=== PATIENT | male | born 1945 | race Caucasian/White ===

== ENCOUNTER 2025-01-11 11:08 | Outpatient (AMB) | payer BC, SELFPAY ==
--- NOTE | 2025-01-11 11:55 | MHC.OFFVIS ---
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 His initial labs in November of 2024 revealed B12 level 596, folate more than 20, TSH was 1.16, and p-tau level was 1.13, abnormally high suggestive of cerebral amyloid or Alzheimer. His initial MOCA was 17. He said that he was doing ok with no complaints. [facility] Medical History (Updated 01/11/25 @ 12:02 by Lauren Causey MD) Retinal vein occlusion of left eye Carotid stenosis Glaucoma HLD (hyperlipidemia) Hypertension Alzheimer disease Review of Systems Const Details: Complain of forgetfulness Physical Exam Neuro Other: Mental Status: Alert and awake with normal spontaneity of speech fluency and comprehension. Cranial Nerves: CN II: Visual ryan full to confrontation, visual acuity intact. CN III, IV, : Pupils equal, round, reactive to light and accommodation. Extraocular movements are normal. CN V: Facial sensation is normal. CN VII: Facial movements symmetrical. CN VIII: Hearing intact to bedside conversation is normal. CN IX, X: Palate elevates symmetrically. CN XI: Shoulder shrug and head turn symmetrical. CN XII: Tongue midline without atrophy or fasciculations. Motor: Bulk and tone normal in all extremities. No significant muscle weakness in arms and legs. No drift. Reflexes: Deep tendon reflexes 2+ and symmetric. Plantar response down-going bilaterally. Coordination: Mjlbxq-cy-jotu and zldh-iv-annm testing normal. No dysmetria. Gait and Station: No obvious gait abnormality. No ataxia or instability. Sensory: Intact to light touch, pinprick, and vibration. Romberg is negative. Extrapyramidal: Full facial expressions and blinking. No rigidity. Movements are appropriate with no tremor or abnormality. Speech: Normal; no dysarthria or tremor. Assessment & Plan Assessment & Plan (1) Alzheimer dementia: Code(s): G30.9 - Alzheimer's disease, unspecified; F02.80 - Dementia in other diseases classified elsewhere, unspecified severity, without behavioral disturbance, psychotic disturbance, mood disturbance, and anxiety Category: Medical Qualifiers: Alzheimer's disease onset: late onset Dementia severity: moderate Dementia behavioral or psychological symptom: without behavioral, psychotic, or mood disturbance or anxiety Qualified Code(s): G30.1 - Alzheimer's disease with late onset; F02.B0 - Dementia in other diseases classified elsewhere, moderate, without behavioral disturbance, psychotic disturbance, mood disturbance, and anxiety Plan Moderately severe Alzheimer dementia without anxiety, depression, or other behavioral issues. Medications: New donepezil 5 mg PO BEDTIME 30 tabs 1RF Coding Level of Care Code Est Pt Level 4 (49104) Diagnoses Moderate late onset Alzheimer's dementia without behavioral disturbance, psychotic disturbance, mood disturbance, or anxiety G30.1; F02.B0 Alzheimer's disease onset: late onset Dementia severity: moderate Dementia behavioral or psychological symptom: without behavioral, psychotic, or mood disturbance or anxiety
== END 2025-01-11 12:06 | disposition home or self-care (01) ==
LOC: HO.HSM 11:09
PROVIDERS: PCP Internal Medicine; Visit Provider Psychiatry & Neurology Neurology
DX: G30.1 Alzheimer's disease with late onset (principal); F02.B0 Dementia in other diseases classified elsewhere, moderate, without behavioral disturbance, psychotic disturbance, mood disturbance, and anxiety
CPT/HCPCS: 99214

== ENCOUNTER 2025-03-18 12:48 | Outpatient (AMB) | payer BC, SELFPAY ==
--- NOTE | 2025-03-18 13:11 | MHC.OFFVIS ---
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 His initial labs in November of 2024 revealed B12 level 596, folate more than 20, TSH was 1.16, and p-tau level was 1.13, abnormally high suggestive of cerebral amyloid or Alzheimer. His initial MOCA was 17. He is presenting with medication management and adjustment for Alzheimer's disease. He reports adherence to donepezil 10 mg, with noted improvements in his condition by his spouse. An increase in dose to 10 mg is confirmed alongside consideration of initiating memantine at a dosage of 10 mg twice a day. The discussion covered efficacy and the typical observation by family members regarding the effectiveness of these medications. [facility] on [facility] is the chosen pharmacy. [facility] Medical History (Updated 01/11/25 @ 12:02 by Lauren Causey MD) Retinal vein occlusion of left eye Carotid stenosis Glaucoma HLD (hyperlipidemia) Hypertension Alzheimer disease Review of Systems Const Details: - Neurological: Reports taking donepezil, improvements noted by family members. Physical Exam Neuro Other: Mental Status: Alert and oriented to person, place, and time. Normal attention. Normal spontaneous speech, fluency, and comprehension. Cranial Nerves: CN II: Visual ryan full to confrontation, visual acuity intact. CN III, IV, : Pupils equal, round, reactive to light and accommodation. Extraocular movements are normal. CN V: Facial sensation is normal. CN VII: Facial movements symmetrical. CN VIII: Hearing intact to bedside conversation is normal. CN IX, X: Palate elevates symmetrically. CN XI: Shoulder shrug and head turn symmetrical. CN XII: Tongue midline without atrophy or fasciculations. Extrapyramidal: Full facial expressions and blinking. No rigidity. Movements are appropriate with no tremor or abnormality. Speech: Normal; no dysarthria or tremor. Assessment & Plan Assessment & Plan (1) Alzheimer dementia: Code(s): G30.9 - Alzheimer's disease, unspecified; F02.80 - Dementia in other diseases classified elsewhere, unspecified severity, without behavioral disturbance, psychotic disturbance, mood disturbance, and anxiety Category: Medical Qualifiers: Alzheimer's disease onset: late onset Dementia severity: moderate Dementia behavioral or psychological symptom: without behavioral, psychotic, or mood disturbance or anxiety Qualified Code(s): G30.1 - Alzheimer's disease with late onset; F02.B0 - Dementia in other diseases classified elsewhere, moderate, without behavioral disturbance, psychotic disturbance, mood disturbance, and anxiety Plan Impression: Ltnc-gk-oywyhweg Alzheimer dementia without significant behavioral issues Recommendations Increase donepezil to 10 mg a day Start memantine 5 mg twice a day I discussed with the patient and his spouse the plan to increase the donepezil dosage to 10 mg daily and initiate memantine at 10 mg twice a day to improve management of Alzheimer's disease. I explained the combined use of these medications typically results in enhanced cognitive benefits and that adherence is crucial for effectiveness. We talked about expected improvements, primarily noticeable by family members, and risks like potential medication side effects. I instructed them to utilize [facility] for medication refills. Follow-up is planned in three months to evaluate response and make further adjustments if necessary. Medications: New donepezil 10 mg PO BEDTIME 90 tabs 1RF 90 days memantine 5 mg PO BID 180 tabs 0RF 90 days Discontinued donepezil Discontinued Reason: Doctor's Order 5 mg PO BEDTIME 90 tabs 1RF Coding Level of Care Code Est Pt Level 4 (02569) Diagnoses Moderate late onset Alzheimer's dementia without behavioral disturbance, psychotic disturbance, mood disturbance, or anxiety G30.1; F02.B0 Alzheimer's disease onset: late onset Dementia severity: moderate Dementia behavioral or psychological symptom: without behavioral, psychotic, or mood disturbance or anxiety
--- OUTSIDE RECORDS SUMMARY | 2025-03-18 16:59 | XMS_ITS | Clinical Summary ---
Author Organization [facility] Address [address] [place] [id number] Phone Care Team Providers Care Patient Registration Manager Name Role Phone Mahnaz Ken NP Primary Care Provid er Allergies Active Allergy Reactions Criticality Noted Date Comments Allergenic Ext, Mixed Feathers Sneezing 03/08 Cat Dander Sneezing 06/04/2007 House Dust Headaches,Sneezing 03/08/1960 Medications aspirin 81 MG EC tablet Take 81 mg by mouth daily. Active therapeutic multivitamin tablet Take 1 tablet by mouth daily. Active cholecalciferol (VITAMIN D3) 25 MCG (1,000 unit) tablet Take 1,000 Units by mouth daily. Active latanoprost (XALATAN) 0.005 % ophthalmic solution Place 1 drop into each eye daily. Active finasteride (PROSCAR) 5 mg tablet Take 5 mg by mouth daily. 1 Active metoprolol succinate (TOPROL-XL) 50 MG 24 hr tabletIndications :Medication refill TAKE 1 TABLET BY MOUTH EVERY DAY 90 tablet 3 4 Active atorvastatin (LIPITOR) 20 MG tabletIndications :Carotid stenosis, asymptomatic, bilateral TAKE 1 TABLET BY MOUTH EVERY DAY 90 tablet 3 5 Active timolol (TIMOPTIC) 0.5 % ophthalmic solution LOCATION: BOTH EYES. 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 (Primary Dx) from Last 3 Months Immunizations Immunization Administration Dates Next Due COVID-19 (Pre-04/29) Pfizer Vaccine, mRNA, PF 04/27/2021,10/07/2020,09/16/2020 Family History Medical History Relation Comments Cancer Father Cataracts Father Glaucoma Father Cataracts Mother Glaucoma Mother Heart disease Mother Skin cancer Mother Relation Status Comments Father Mother Social History Tobacco Use Types Packs/Day Years Used Date Smoking Tobacco: Never Smokeless Tobacco: Never Tobacco Cessation:Counseling Given: Not Answered Alcohol Use Standard Drinks/Week Comments Not Currently 0 (1 standard drink = 0.6 oz pur e alcohol) Education Answer Date Recorded Are you interested in more education? Not on ish e 11/02/2022 Are you concerned about learning? Not on file 11/02/2022 No 11/02/2022 No 11/02/2022 Digital Access Answer Date Recorded No 12/04/2022 No 12/04/2022 Reliable internet access at home? Not on file 12/04/2022 Device with a working camera? Not on file Sex and Gender Information Value Date Recorded Sex Assigned at Not on file Legal Sex Male 11:35 AM EST Gender Identity Male 03/14/2021 4:02 PM EDT Sexual Orientation Not on file Last Filed Vital Signs Vital Sign Reading Time Taken Comments Blood Pressure 116/78 10/05/2024 10:30 AM EDT Pulse 61 10/05/2024 10:30 AM EDT Temperature - - Respiratory Rate - - Oxygen Saturation 99% 10/05/2024 10:30 AM EDT Inhaled Oxygen Concentration - - Weight 67.1 kg (148 lb) 10/05/2024 10:30 AM EDT Height 170.2 cm (5' 7 ) 10/05/2024 10:30 AM EDT Body Mass Index 23.18 10/05/2024 10:30 AM EDT Plan of Treatment Upcoming Encounters Date Type Department Care Team (Late st Contact Info) Description 09/07/2025 8:45 AM EST Appointment [facility] [address] [place] [address] George Arias MD [address] [place] [address], [address] [address] 09/15/2025 10:00 AM EDT Procedure visit [facility] [address] [place] [address] Darshan Bowser MD, PhD [address] [place] [phone] [email or web address] 09/20/2025 8:40 AM EDT Office Visit [facility] [address] [place] [address] Dr [address]rd [facility], [address] [address] George Arias MD [address] [place] [address], [address] [address] Health Maintenance Due Date Last Done Comments Adult Td,Tdap Booster 1945 DEPRESSION SCREENING 1957 HEPATITIS C SCREENING 1963 PNEUMOCOCCAL VACCINES (50+ years) (1 of 1 - PCV) 1995 RSV VACCINE (1 - 1-dose 75+ series) 2020 INFLUENZA VACCINE (#1) 2025 , 04/04/2022, 03/30/2021, Additional history exists COVID-19 VACCINE (2024- season) 2025 11/27/2022, 04/26/2022, 11/17/2021, Additional history exists LIPID PANEL 10/19/2025 10/19/2024, 11/21/2020 ZOSTER VACCINES Completed 10/30/2022, 03/09/2022 SMOKING STATUS SCREENING (Once After 26 Yrs) Completed 10/05/2024 HEPATITIS A VACCINES Aged Out No long er eligible based on patient's age to complete this topic HIB VACCINES Aged Out No longer eligi ble based on patient's age to complete this topic MENINGOCOCCAL VACCINES (ACWY) Aged Out No longer eligible based on patient's age to complete this topic MENINGOCOCCAL VACCINES (B) Aged Out N o longer eligible based on patient's age to complete this topic Medical Devices Not on file Procedures Procedure Name Priority Date/Time Associated Diagnosis Comments OCT, RETINA - OU - BOTH EYES Routine 01/13/2025 11:14 AM EDT 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 Left Eye Disease has: been improved. Notes Right eye: posterior vitreous detachment, good contour, single druse superotemp macula - stable Left eye: posterior vitreous detachment, cystic IRF nasal to fovea (shifted fluid), superior intraretinal hyperreflective foci - overal stable/slightly improved us Darshan Bowser MD, PhD OPHTHALMOLOGY IMAGING Final R esult YAMEL * (ABNORMAL) Lipid panel (10/19/2024 10:36 AM EDT) HDL 83 mg/dL [facility] Comment: Interpretation <40 mg/dL: Low HDL cholesterol (major risk factor for CHD) Greater than or equal to 60 mg/dL: High HDL cholesterol ( negative risk factor for CHD) HDL - cholesterol is affected by a number of factors, e.g. smoking, excerise, hormones, sex and age. CHOLESTEROL 157 0 - 240 mg/dL [facility] TRIGLYCERIDES 63 30 - 160 mg/dL [facility] LDL 61 50 - 129 mg/dL [facility] Comment: LDL levels in terms of risk for coronary heart disease: <100 mg/dL: Optimal 100-129 mg/dL: Near or above optimal 130-159 mg/dL: Borderline high 160-189 mg/dL: High >190 mg/dL: Very High CARDIAC RISK RATIO 1.9(L) 3.4 - 5.0 [facility] Blood 10/19/2024 10:3 6 AM EDT 10/19/2024 10:38 AM EDT us George Arias MD LAB BLOOD ORDERABLES Final Result [address] [address] from Last 3 Months or Most Recently Relevant to Health Maintenance Insurance MEDICARE PPO BLUE [place]AC[place] [place] [address] MEDICARE PPO BLUE [place] [place] [address] MEDICARE PPO BLUE [place] [place] [address] MEDICARE PPO BLUE [place] [place] [place] [address] MEDICARE PPO BLUE [place] [place] [place] [address] MED[address] [place] [place] [address] MEDIC[address] [place] [address] MEDIC[address]PO [address] [place] [place] [address] MEDICARE PPO BLUE REPLACEMENT Care Teams Patient Registration Manager Relationship Specialty Start Date End Date Mahnaz Ken NP [address] [place] [address] PCP - General Family Medicine 12/20/20 Additional Source Comments The information contained in this document represents components of the legal health record. It is not the complete legal health record.[facility]
== END 2025-03-18 13:18 | disposition home or self-care (01) ==
LOC: HO.HSM 12:49
PROVIDERS: PCP Nurse Practitioner Primary Care; Visit Provider Psychiatry & Neurology Neurology
DX: G30.1 Alzheimer's disease with late onset (principal); F02.B0 Dementia in other diseases classified elsewhere, moderate, without behavioral disturbance, psychotic disturbance, mood disturbance, and anxiety
CPT/HCPCS: 99214

== ENCOUNTER 2025-06-17 12:48 | Outpatient (AMB) | payer BC, SELFPAY ==
--- NOTE | 2025-06-17 12:59 | MHC.OFFVIS ---
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 His initial labs in November of 2024 revealed B12 level 596, folate more than 20, TSH was 1.16, and p-tau level was 1.13, abnormally high suggestive of cerebral amyloid or Alzheimer. His initial MOCA was 17. He is presenting for a neurologic follow-up visit for management of dementia. His caregiver reports his condition has stabilized, with many good days, but he continues to have intermittent bad days described as being mixed up. He takes donepezil and memantine for his condition. The patient reports increased urinary frequency but notes his bladder control has been good. He has a history of a prostate problem for which he has seen a urologist. [facility] Medical History (Updated 01/11/25 @ 12:02 by Lauren Causey MD) Retinal vein occlusion of left eye Carotid stenosis Glaucoma HLD (hyperlipidemia) Hypertension Alzheimer disease Review of Systems Narrative - Psychiatric: Denies depression or anxiety. - Genitourinary: Reports increased urinary frequency. - Constitutional: Reports sleeping well. - Neurological: Reports a stable condition with intermittent days of confusion. Physical Exam Neuro Other: Mental Status: Alert and oriented to person, place, and time. Normal attention. Normal spontaneous speech, fluency, and comprehension. Cranial Nerves: CN II: Visual ryan full to confrontation, visual acuity intact. CN III, IV, : Pupils equal, round, reactive to light and accommodation. Extraocular movements are normal. CN V: Facial sensation is normal. CN VII: Facial movements symmetrical. CN VIII: Hearing intact to bedside conversation is normal. CN IX, X: Palate elevates symmetrically. CN XI: Shoulder shrug and head turn symmetrical. CN XII: Tongue midline without atrophy or fasciculations. Extrapyramidal: Full facial expressions and blinking. No rigidity. Movements are appropriate with no tremor or abnormality. Speech: Normal; no dysarthria or tremor. Assessment & Plan Assessment & Plan (1) Alzheimer dementia: Code(s): G30.9 - Alzheimer's disease, unspecified; F02.80 - Dementia in other diseases classified elsewhere, unspecified severity, without behavioral disturbance, psychotic disturbance, mood disturbance, and anxiety Category: Medical Qualifiers: Alzheimer's disease onset: late onset Dementia severity: moderate Dementia behavioral or psychological symptom: without behavioral, psychotic, or mood disturbance or anxiety Qualified Code(s): G30.1 - Alzheimer's disease with late onset; F02.B0 - Dementia in other diseases classified elsewhere, moderate, without behavioral disturbance, psychotic disturbance, mood disturbance, and anxiety Plan Impression: Hucn-hj-kzkjoknu Alzheimer dementia without significant behavioral issues Recommendations Increase donepezil to 23 mg a day Start memantine 10 mg twice a day I discussed with the patient and his caregiver that I would be increasing his medications, donepezil and memantine, to their full doses to best manage his condition. I explained that donepezil would be increased to 23 mg daily and memantine would be increased to 10 mg twice daily. I provided instructions to double their current prescriptions to achieve these doses until they run out, and they affirmed their understanding. I advised them to let me know if any issues arise and that we would plan to follow up in six months. Medications: New donepezil 23 mg PO BEDTIME 90 tabs 1RF memantine (Namenda) 10 mg PO BID 180 tabs 1RF Discontinued donepezil Discontinued Reason: Doctor's Order 10 mg PO BEDTIME 90 days 90 tabs 1RF memantine Discontinued Reason: Doctor's Order 5 mg PO BID 180 tabs 0RF Coding Level of Care Code Est Pt Level 3 (43938) Diagnoses Moderate late onset Alzheimer's dementia without behavioral disturbance, psychotic disturbance, mood disturbance, or anxiety G30.1; F02.B0 Alzheimer's disease onset: late onset Dementia severity: moderate Dementia behavioral or psychological symptom: without behavioral, psychotic, or mood disturbance or anxiety
== END 2025-06-17 13:14 | disposition home or self-care (01) ==
LOC: HO.HSM 12:48
PROVIDERS: PCP Nurse Practitioner Primary Care; Visit Provider Psychiatry & Neurology Neurology
DX: G30.1 Alzheimer's disease with late onset (principal); F02.B0 Dementia in other diseases classified elsewhere, moderate, without behavioral disturbance, psychotic disturbance, mood disturbance, and anxiety
CPT/HCPCS: 99213